=== PATIENT | male | born 1945 | race Two or more races ===

== ENCOUNTER 2016-11-27 19:56 | Inpatient (IN) | payer OTHER ==
--- NOTE | ~2016-11-27 | EKG ---
PATIENT: ARABELLA PEREZ UNIT #: [id number] Ventricular Rate: 77 BPM Atrial Rate: 77 BPM P-R Interval: 172 ms QRS Duration: 118 ms Q-T Interval: 466 ms QTC Calculation(Bezet): 527 ms P [place]: 52 degrees Calculated R [place]: 37 degrees Calculated T [place]: 138 degrees Diagnosis Line: Sinus rhythm with Premature atrial complexes Diagnosis Line: Left ventricular hypertrophy with QRS widening and Diagnosis Line: repolarization abnormality Diagnosis Line: Cannot rule out Septal infarct , age undetermined Diagnosis Line: Prolonged QT Diagnosis Line: Abnormal ECG Diagnosis Line: Diagnosis Line: Confirmed by ASHUTOSH MUHAMMAD MD ([id number]) on 11/28/2016 Diagnosis Line: 7:21:44 PM INTERPRETING MD: SABINA RAMON
--- NOTE | ~2016-11-27 | EKG ---
PATIENT: ARABELLA PEREZ UNIT #: [id number] Ventricular Rate: 76 BPM Atrial Rate: 76 BPM P-R Interval: 160 ms QRS Duration: 114 ms Q-T Interval: 448 ms QTC Calculation(Bezet): 504 ms P [place]: 34 degrees Calculated R [place]: -6 degrees Calculated T [place]: 134 degrees Diagnosis Line: Normal sinus rhythm Diagnosis Line: Non-specific intra-ventricular conduction delay Diagnosis Line: ST and T wave abnormality, consider lateral ischemia Diagnosis Line: Prolonged QT Diagnosis Line: Abnormal ECG Diagnosis Line: No previous ECGs available Diagnosis Line: Confirmed by MAYA URBAN MD ([id number]) on Diagnosis Line: 12/11/2016 7:12:26 AM INTERPRETING BRADLEY SAMUELS
--- NOTE | ~2016-11-27 | TH ---
Unit #: [id number] #: [id number] Patient: ARABELLA PEREZ [id number] [address] [address] [id number] I MR#: [id number] NAME: ARABELLA PEREZ : 1945 SEX: M STUDY DATE/TIME: 11/28/2016 UNIT: C5B ROOM: 554 STUDY DESCRIPTION: Cardiolite imaging. Attending Physician: Primitivo Anderson M.D. Primary Care Physician: No Primary Care Physician CARDIOLOGY REPORT EXAM Cardiolite imaging. PROCEDURE Resting dose was 10 mCi, stress dose was 31 mCi. End-diastolic volume was 205 ml and systolic volume was 150 ml. Calculated ejection fraction of 27%. Raw images showed no significantly abnormal extracardiac uptake. Images showed severe dilatation of the left ventricle. Gated images showed severe global hypokinesis with calculated ejection fraction of 27%. Perfusion images showed fixed defect in the inferior wall and apical wall and distal anterior wall with an area of surrounding reversible defect in the mid and distal anterior wall. IMPRESSION 1. Severe global hypokinesis of the left ventricle with calculated ejection fraction of 27%. 2. Fixed defect in the inferior wall and inferoapical wall, suggests inferior wall infarct but cannot exclude diaphragmatic attenuation. 3. Fixed defect in the apical wall and distal anterior wall with surrounding area of mild to moderate reversibility, suggestive of ischemia. 4. Severe global hypokinesis with calculated ejection fraction of 27%. Dictated by... aCssie Dennison TD: 11/30/2016 08:43 JOB #: [id number] CARDIOLOGY REPORT Page 1 of 1 X CARDIOLOGY REPORT
--- NOTE | ~2016-11-27 | ST ---
Unit #: [id number] #: [id number] Patient: ARABELLA PEREZ [id number] [address] [address] [id number] I MR#: [id number] NAME: ARABELLA PEREZ : 1945 SEX: M STUDY DATE/TIME: 11/28/2016 UNIT: C5B ROOM: 4 STUDY DESCRIPTION: Attending Physician: Salvador Belcher M.D. Primary Care Physician: No Primary Care Physician CARDIOLOGY REPORT EXAM EKG portion of Lexiscan stress test. FINDINGS Resting blood pressure was 125/73. Post infusion blood pressure was 117/77. Resting heart rate was 78 beats per minute. Post infusion heart rate was 85 beats per minute. Resting EKG showed normal sinus rhythm with PACs and nonspecific ST segment changes with T-wave inversion in I, aVL, V5, and V6. Post infusion EKG showed sinus rhythm with PACs and no changes in his ST segments. There was one isolated PVC. IMPRESSION Unremarkable EKG portion of Lexiscan stress test for regadenoson-induced ischemia. Dictated by.Laurita. Cassie Dennison TD: 11/29/2016 08:56 JOB #: [id number] CARDIOLOGY REPORT Page 1 of 1 X CARDIOLOGY REPORT
--- NOTE | ~2016-11-27 | CR63 ---
[facility]. [facility] A Service of [facility] & [facility] RADIOLOGY TEXT RESULTS PATIENT: ARABELLA PEREZ LOCATION: [facility] : [birth year] UNIT #: [id number] AGE: [address]: Salvador Belcher MD SEX: M ORDER DR: [id number] [place] [id number] E MR#: [id number] Acc #: [id number] NAME: ARABELLA PEREZ : 1945 SEX: M STUDY DATE/TIME: 11/27/2016 19:30 UNIT: SED ROOM: STUDY DESCRIPTION: CR Chest 2 View Attending Physician: Dheeraj Haney D.O. Ordering Physician: Dheeraj Haney D.O. Primary Care Physician: No Primary Care Physician MEDICAL IMAGING REPORT This report is preliminary unless electronic signature is present. EXAM 2 view chest. DATE OF EXAM 11/27/2016 INDICATIONS Shortness of air. Bilateral lower extremity swelling for 1 week. FINDINGS PA and lateral views of the chest without comparison. The heart is mildly enlarged. There is an airspace opacity in the right lower lobe with background COPD. No pleural effusion. IMPRESSION Mild right basilar airspace opacity likely representing pneumonia. Please confirm with clinical history. Dictated by... Syd Meneses M.D. THIS IS AN ELECTRONICALLY VERIFIED REPORT Syd Meneses M.D. at 11/28/2016 7:55 AM EZIO/jorge TD: 11/27/2016 23:29 JOB #: [id number] MEDICAL IMAGING REPORT Page 1 of 1
--- NOTE | ~2016-11-27 | HP ---
Unit #: [id number] #: [id number] Patient: ARABELLA PEREZ [id number] [address] [place], [place] [address] [id number] I MR#: [id number] NAME: ARABELLA PEREZ ROOM: 554 Age: 71 Sex: M Admission Date: 11/28/2016 : 1945 Attending Physician: Nelida Mzaa M.D. Primary Care Physician: No Primary Care Physician HISTORY AND PHYSICAL CHIEF COMPLAINT New onset dyspnea on exertion with pedal edema and an abnormal EKG. HISTORY This pleasant 71-year-old male with AODM, hypertension, hyperlipidemia, was transferred from [facility] emergency department for dyspnea on exertion. The patient states that he was well until visiting [place]. I believe he left his medicine in the [facility]. While in [place] he noted bilateral pedal edema with new dyspnea on exertion and perhaps some upper abdominal discomfort. Has never had similar symptoms in the past and states that the shortness of breath was fairly significant. He was perhaps given some Lasix and perhaps given an inhaler with improvement. He went to [facility] emergency department late last evening where a CTA was negative for PE. Dopplers were negative for DVTs. An EKG, however, is abnormal. We have no previous EKG for comparison. He denies chest pain with the above, although he does admit to new upper abdominal discomfort. PAST MEDICAL HISTORY 1. AODM x 2 years. 2. Essential hypertension. 3. Hyperlipidemia. 4. Right hand surgery. 5. Right leg surgery. ALLERGIES No known drug allergies. HOME MEDICATIONS Mevacor 20 mg q.h.s.; Zestoretic 20/25 mg daily; Amaryl 2 mg daily; aspirin 81 mg daily; Zyrtec 10 mg; metformin 1,000 mg b.i.d.; Norvasc 5 mg daily. Apparently patient was given possibly Lasix and possibly an albuterol inhaler two him while in [place]. FAMILY HISTORY Mother and older brother had heart disease. SOCIAL HISTORY The patient lives with his daughter in the [place]. He is a lifelong nonsmoker. Seldom drinks alcohol. 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 PHYSICAL EXAMINATION Unit #: [id number] #: [id number] Patient: ARABELLA PEREZ GENERAL: Very pleasant 71-year-old ill appearing male moderately obese, in no acute distress. VITAL SIGNS: Temperature 97.6, pulse 77, respirations 18, O2 saturation 98% on 2 L, blood pressure 119/75, weight is 195 pounds. HEENT: Eyes - PERRLA. Extraocular muscles are intact. Pharynx is benign. NECK: Supple without adenopathy, thyromegaly or JVD. CHEST: Clear. CARDIAC: Normal S1 and S2 without murmur. ABDOMEN: Bowel sounds are present. No hepatosplenomegaly, tenderness, or masses. EXTREMITIES: Without edema. Pedal pulses are present but diminished. No ulcers on the feet. Rash over the distal right lower extremity. NEUROLOGIC: Patient is awake, alert, and oriented. Cranial nerves are intact. Equal strength throughout. DIAGNOSTIC STUDIES LABORATORY STUDIES: Hematocrit is 48.4, normal white count, platelet count and coags. SMA 12 - glucose 225, BUN 25, chloride 95, lactic acid normal. Negative cardiac markers x2. Negative influenza serology. IMAGING STUDIES: Chest x-ray was suspicious for a right lower lobe infiltrate. A CTA of the chest was performed, which was negative for a PE. Did show some atelectasis at the right base, along with some bronchiectasis. Dopplers of the lungs were negative for DVT. CARDIOLOGY STUDIES: EKG shows a normal sinus rhythm, rate 76 with somewhat poor R wave progression V1 through V4. T wave inversions noted in 1 and AVL and in V5 and V6. No old EKG for comparison. ASSESSMENT 1. New dyspnea on exertion with abnormal EKG in this male with CAD risk factors. Patient also admitted to pedal edema, which now is improved. 2. AODM. 3. Hyperlipidemia. 4. Hypertension. PLANS 1. Repeat labs this morning, obtain BNP, echo, cardiology consultation. 2. Hold oral hypoglycemics, given sliding scale insulin for now. 3. DVT prophylaxis. Dictated by Nelida Maza M.D. Lew TD: 11/28/2016 05:26 JOB #: [id number] Unit #: [id number] #: [id number] Patient: ARABELLA PEREZ HISTORY AND PHYSICAL Page 1 of 1 X Nelida Maza MD HISTORY AND PHYSICAL
--- NOTE | ~2016-11-27 | ST ---
Unit #: [id number] #: [id number] Patient: ARABELLA PEREZ [id number] [address] [address] [id number] I MR#: [id number] NAME: ARABELLA PEREZ : 1945 SEX: M STUDY DATE/TIME: 11/28/2016 UNIT: C5B ROOM: 554 STUDY DESCRIPTION: Attending Physician: Salvador Belcher M.D. Primary Care Physician: No Primary Care Physician CARDIOLOGY REPORT EXAM EKG portion of Lexiscan Cardiolite stress test. REASON FOR EXAMINATION Atypical chest pain. FINDINGS Baseline EKG shows normal sinus rhythm with an incomplete left bundle branch block and a rate of 73 beats per minute. PROCEDURE A total of 0.4 mg of Lexiscan was injected per protocol followed by Cardiolite. The patient's symptoms were mild shortness of breath. There were no ST-T wave changes or arrhythmias. The test was stopped due to protocol completion. IMPRESSION 1. There were no ST-T wave changes. 2. Shortness of breath, resolved in recovery. 3. There are no arrhythmias. 4. Please correlate with Cardiolite imaging. Dictated by... Alaina Belcher A.P.R.N. for Sal Suarez M.D. AM/cristal TD: 11/28/2016 17:09 JOB #: [id number] CARDIOLOGY REPORT Page 1 of 1 X Alaina Belcher APRN CARDIOLOGY REPORT
--- NOTE | ~2016-11-27 | US84 ---
[id number] [address] [id number] I MR#: [id number] Acc #: [id number] NAME: ARABELLA PEREZ : 1945 SEX: M STUDY DATE/TIME: 11/27/2016 20:40 UNIT: SEDOF ROOM: G26793 STUDY DESCRIPTION: US LE Veins Complete Jaiden Stdy Attending Physician: Nelida Maza M.D. Ordering Physician: Dheeraj Haney D.O. Primary Care Physician: Primary Care Physician No MEDICAL IMAGING REPORT This report is preliminary unless electronic signature is present. EXAM Bilateral lower extremity venous duplex Doppler INDICATION Bilateral leg swelling for 2 weeks. Increasing severity over the last 2 days. TECHNIQUE Venous ultrasound examination of both lower extremities was performed using grayscale, spectral Doppler and color flow Doppler imaging. FINDINGS The examination is negative. There is no evidence of deep venous thrombus from the groin to the lower calf bilaterally. Visualized greater saphenous veins are also patent. IMPRESSION Negative examination. No evidence of lower extremity DVT. Dictated by... Syd Meneses M.D. THIS IS AN ELECTRONICALLY VERIFIED REPORT Syd Meneses M.D. at 11/28/2016 3:17 PM EZIO/kaylynn TD: 11/28/2016 01:22 JOB #: [id number] MEDICAL IMAGING REPORT Page 1 of 1
--- NOTE | ~2016-11-27 | CT16 ---
[facility] A Service [facility] RADIOLOGY TEXT RESULTS PATIENT: ARABELLA PEREZ LOCATION: [place] [address] : [birth year] UNIT #: [id number] AGE: [address]: Salvador Belcher MD SEX: M ORDER DR: [id number] [place] [address] [id number] I MR#: [id number] Acc #: [id number] NAME: ARABELLA PEREZ : 1945 SEX: M STUDY DATE/TIME: 11/27/2016 21:18 UNIT: SEDOF ROOM: K23547 STUDY DESCRIPTION: CT Angio Chest for PE Attending Physician: Nelida Maza M.D. Ordering Physician: Dheeraj Haney D.O. Primary Care Physician: Primary Care Physician No MEDICAL IMAGING REPORT This report is preliminary unless electronic signature is present. EXAM CTA chest INDICATIONS Shortness of air. Dyspnea for 1 week. Bilateral lower extremity swelling. TECHNIQUE CT angiography of the chest utilizing 100 mL Isovue-370 IV contrast. Coronal 3-D MIP reconstructions and standard sagittal reconstructions were obtained. This CT exam was performed with one or more of the following radiation dose reduction techniques: automatic exposure control, adjustment of mA and/or kV according to patient size, and iterative reconstruction. COMPARISON Chest radiograph obtained the same day. FINDINGS No pulmonary embolus. No thoracic aortic aneurysm or dissection. No pericardial or pleural effusion. There is some bronchiectasis and volume loss in the lingula and medial right middle lobe. Airspace opacity in the right lung base and left lung base is fairly linear most consistent with scarring or atelectasis. There is no focal consolidation. There is no acute osseous abnormalities. IMPRESSION [facility] A Service [facility] RADIOLOGY TEXT RESULTS PATIENT: ARABELLA PEREZ LOCATION: [place] [address] : [birth year] UNIT #: [id number] AGE: [address]: Salvador Belcher MD SEX: M ORDER DR: 1. Negative for pulmonary embolus. 2. Linear airspace opacity in the right lung base has appearance more typical for atelectasis or scarring, rather than a pneumonia. 3. Small areas of bronchiectasis and volume loss in the right middle lobe and lingula. Dictated by... Syd Meneses M.D. THIS IS AN ELECTRONICALLY VERIFIED REPORT Syd Meneses M.D. at 11/28/2016 3:17 PM EZIO/kaylynn TD: 11/28/2016 01:49 JOB #: [id number] MEDICAL IMAGING REPORT Page 1 of 1
--- NOTE | ~2016-11-27 | DS ---
Unit #: [id number] #: [id number] Patient: ARABELLA PEREZ [id number] [address] [address] [id number] I MR#: [id number] NAME: ARABELLA PEREZ ROOM: 554 Age: 71 Sex: M Admission Date: 11/28/2016 : 1945 Discharge Date: 12/02/2016 Attending Physician: Primitivo Anderson M.D. Primary Care Physician: Primary Care Physician No DISCHARGE SUMMARY DISCHARGE DIAGNOSES Include: 1. Triple-vessel coronary artery disease. 2. Ischemic cardiomyopathy with a depressed left ventricular ejection fraction of 20%. 3. Systolic heart failure with ejection fraction of 20%. 4. Type 2 diabetes uncontrolled. 5. Hyperlipidemia. 6. Essential hypertension. HOSPITAL COURSE Since the previous summary by Aileen Ruffin, the patient has had a left heart catheterization by Dr. Suarez which revealed patient does have ischemic cardiomyopathy with triple-vessel disease and severely depressed ejection fraction at 20%. Effort was made to coordinate care with CT surgery. At this time, patient is stable without any further symptoms of ischemia, chest pain or dyspnea on exertion. It is felt by Cardiology that patient was stable to be discharged home. The patient will have the surgical team call him for outpatient surgical planning with coronary artery bypass. The patient's tells me that he has a followup appointment with Dr. Nam tomorrow and I have stressed to her that patient should keep the followup appointment for any further care is needed. DISCHARGE CONDITION Stable. DISCHARGE INSTRUCTIONS 1. Keep followup appointment with Dr. Nam tomorrow. 2. Patient will have the surgical team at [facility] to call him for surgery planning with coronary artery bypass. DISCHARGE ACTIVITY I have spoken to patient's about the need for ambulating every day but minimal ambulation. The patient should not exert himself as he does have multivessel disease and this would put more strain on his heart. She voiced understanding. DISCHARGE DIET Heart-healthy with [place] [employer] guidelines for consistent carbs. DISCHARGE MEDICATIONS 1. Metformin to be restarted 1000 mg p.o. b.i.d. Unit #: [id number] #: [id number] Patient: ARABELLA PEREZ 2. Zyrtec 10 mg p.o. daily. 3. Coreg 6.25 mg p.o. b.i.d. 4. Colace 100 mg p.o. daily. 5. Lasix 40 mg p.o. daily. 6. Atorvastatin 80 mg p.o. daily. 7. Lisinopril 20 mg p.o. daily. 8. Aspirin 81 mg daily. 9. Potassium chloride 20 mEq p.o. daily. 10. Patient was instructed to restart metformin and glimepiride on , December 03, 2016, as he recently had heart cath with much IV contrast exposure. 11. Patient can stop the previous lisinopril with hydrochlorothiazide combination. 12. Will be giving patient a glucometer so that he can do Accu-Cheks as he may use low-dose sliding scale insulin prior to at bedtime. Dictated by... Jami Hutchinson PA-C for Cassie Palomino/katelyn TD: 12/04/2016 20:20 JOB #: [id number] DISCHARGE SUMMARY Page 1 of 1 X X DISCHARGE SUMMARY
--- NOTE | ~2016-11-27 | EKG ---
PATIENT: ARABELLA PEREZ UNIT #: [id number] Ventricular Rate: 65 BPM Atrial Rate: 65 BPM P-R Interval: 174 ms QRS Duration: 120 ms Q-T Interval: 484 ms QTC Calculation(Bezet): 503 ms P [place]: 43 degrees Calculated R [place]: 28 degrees Calculated T [place]: 131 degrees Diagnosis Line: Sinus rhythm with Premature atrial complexes with Diagnosis Line: Aberrant conduction Diagnosis Line: Incomplete left bundle branch block Diagnosis Line: ST and T wave abnormality, consider anterolateral Diagnosis Line: ischemia Diagnosis Line: Abnormal ECG Diagnosis Line: Diagnosis Line: Confirmed by ASHUTOSH MUHAMMAD MD ([id number]) on 12/01/2016 Diagnosis Line: 10:54:18 PM INTERPRETING MD: SABINA RAMON
--- NOTE | ~2016-11-27 | DS ---
Unit #: [id number] #: [id number] Patient: ARABELLA PEREZ [id number] [address] [address] [id number] I MR#: [id number] NAME: ARABELLA PEREZ ROOM: 554 Age: 71 Sex: M Admission Date: 11/28/2016 : 1945 Discharge Date: Attending Physician: Primitivo Anderson M.D. Primary Care Physician: Lissy Primary Care Physician DISCHARGE SUMMARY ANTICIPATED DATE OF DISCHARGE 11/28/2016 ADMITTING DIAGNOSES 1. New dyspnea on exertion with abnormal EKG with coronary artery disease risk factors. 2. Pedal edema. 3. Type 2 diabetes mellitus. 4. Hyperlipidemia. 5. Hypertension. DISCHARGE DIAGNOSEES 1. New dyspnea on exertion with abnormal EKG. 2. Status post Lexiscan Cardiolite stress test with nuclear cardiology report pending at this time. 3. Pedal edema, resolved. 4. Type 2 diabetes mellitus. 5. Hyperlipidemia. 6. Hypertension. CONSULTANTS Sal Suarez M.D., [facility]. PROCEDURES Lexiscan Cardiolite stress test. Nuclear film report pending from the hat presser at this time. DIAGNOSTIC STUDIES LABORATORY: Lab work: WBC 8.2, hemoglobin 15.8, hematocrit 48.4, platelet count 254,000. Sodium 139, potassium 4.1, chloride 100, CO2 30, glucose 159, BUN 18, creatinine 0.8, calcium 8.5, AST 23, ALT 20, alkaline phosphatase 71, total bilirubin 0.4, total protein 6.7, albumin 3.3, %MB 2.7, troponin I 0.03 and less than 0.05, BNP 77. Lipid profile: Total cholesterol 138, triglycerides 153, LDL cholesterol 78, HDL cholesterol 29. Lactic acid 1.4. Influenza A/B rapid screen negative/negative. INR 1.1. TSH 0.85. IMAGING: CTA of the chest. Impression: Negative for pulmonary embolus. Linear opacity in right lung base appearance more typical for atelectasis or scarring rather than pneumonia. Small areas of bronchiectasis and volume loss in the right middle lobe and lingula. Bilateral lower extremity duplex venous Doppler negative examination. No Unit #: [id number] #: [id number] Patient: ARABELLA PEREZ evidence of lower extremity DVT. Two-view chest x-ray 11/27/16. Impression: Mild right basilar airspace opacity likely representing pneumonia. Please confirm with clinical history. CARDIOLOGY: Lexiscan Cardiolite stress test report pending at this time. ALLERGIES No known drug allergies. CURRENT MEDICATIONS IN THE HOSPITAL 1. Tylenol 650 mg p.o. q.6 h. p.r.n. pain. Discontinue. 2. Lovenox 40 mg subcu q.24 h. Discontinue. 3. Claritin 10 mg p.o. daily p.r.n. Change to Zyrtec 10 mg p.o. daily (home med). 4. Ambien 5 mg p.o. q.h.s. p.r.n. sleep. Discontinue. 5. Norvasc 5 mg p.o. daily. 6. Laxative of choice p.r.n. constipation. 7. Mevacor 20 mg p.o. q.h.s. 8. NovoLog medium dose sliding-scale insulin protocol before meals and at bedtime. Discontinue. 9. Aspirin 325 mg p.o. q.24 h. 10. Discontinue IV fluids. 11. Cardiology will address discharge medications for hypertension as well as diuretics and aspirin. DIET Healthy heart diet. CONDITION Stable. DISPOSITION Home pending results of nuclear cardiology stress test and recommendations of Cardiology. HOSPITAL COURSE Patient is a 71-year-old [place] male who presented to [facility] emergency department on the day of admission with complaints of new onset dyspnea on exertion with pedal edema and was noted to have an abnormal EKG. Patient initially went to [facility] emergency department where a CTA of the chest was performed and negative for pulmonary embolus. Dopplers were also negative for DVTs. Because of the patient's abnormal EKG, he was transferred to this facility. Please refer to history and physical above. Dr. Suarez was consulted and the patient underwent a Lexiscan Cardiolite stress test this morning. Results of that test are pending at this time. The patient's labs and vital signs are stable. The patient has had no further dyspnea on exertion, no chest discomfort and pedal edema is resolved. The patient tells me that he is established with a primary care physician. I have evaluated the patient today and he will be discharged home pending recommendations of Cardiology based on results of the nuclear cardiology report. Please note this patient's visit was conducted with [employer]-sensing telephone drawer waxer system, drawer waxer Unit #: [id number] #: [id number] Patient: ARABELLA PEREZ #[id number]. Patient expressed concern regarding a small pinkish area on the anteromedial aspect of the right lower extremity. There is no itching, burning, vesicles, edema, streaking or other complaints. Patient denies trauma to this area. The patient has been advised to monitor this area closely and to return to the emergency department for fever, chills, erythema, enlarging area with or without streaking and he has verbalized understanding of this information. An order has been written to call [facility] with results of the nuclear cardiology report for discharge order. An order has also been written for cardiology to review the patient's discharge medication reconciliation form for the reason as dictated under discharge medications above. Dictated by... Aileen Ruffin A.P.R.N. for Cassie Galdamez/nya TD: 11/30/2016 18:01 JOB #: [id number] DISCHARGE SUMMARY Page 1 of 1 X Aileen Ruffin PLACEMENT ASSISTANT X DISCHARGE SUMMARY
--- NOTE | ~2016-11-27 | CO ---
Unit #: [id number] #: [id number] Patient: ARABELLA PEREZ [id number] [facility]. [place], [place] [address] [id number] MR#: [id number] NAME: ARABELLA PEREZ ROOM: 55 Age: 71 Sex: M Admission Date: 11/28/2016 : 1945 Attending Physician: Salvador Belcher M.D. Primary Care Physician: No Primary Care Physician Consultation Date: 11/28/2016 CONSULTATION REPORT REASON FOR CONSULTATION Dyspnea. 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 The patient reports that he never has had a myocardial infarction, stress test, or 2D echocardiogram. Please note, patient speaks Lao only and the interpreter deaf phone was used. Additional past medical history includes: Adult-onset diabetes mellitus, hypertension, and hyperlipidemia. The patient was transferred from [facility] for dyspnea on exertion. The patient states he was well while visiting family in [place]. While in [place], he noted some bilateral pedal edema with new dyspnea on exertion and perhaps some upper abdominal comfort. He reports that this dyspnea had been going on for one week. He denies any chest pain, nausea, vomiting, fever, or chills. He went to [facility] where he had a CTA that was negative for a PE and Dopplers were negative for DVTs. His EKG was abnormal. The patient was sent to [facility] for further workup. The patient's EKG showed sinus rhythm at 76 beats per minute with a left axis and incomplete left bundle branch block with T-wave inversion. His troponin was 0.03. PAST MEDICAL HISTORY 1. Hypertension. 2. Hyperlipidemia. 3. Adult-onset diabetes mellitus. PAST SURGICAL HISTORY 1. Right hand surgery. 2. Right leg surgery. ALLERGIES No known allergies. HOME MEDICATIONS 1. Glimepiride 2 mg p.o. daily. 2. Lovastatin 20 mg p.o. at bedtime. 3. Amlodipine 5 mg p.o. daily. 4. Metformin 1000 mg p.o. b.i.d. 5. Aspirin 81 mg p.o. daily. 6. Lasix 40 mg p.o. daily. Unit #: [id number] #: [id number] Patient: ARABELLA PEREZ 7. Zyrtec 10 mg p.o. daily. 8. Zestoretic 20/25 mg one tab p.o. daily. FAMILY HISTORY Patient reports that his mother and brother had heart disease. SOCIAL HISTORY The patient denies tobacco, alcohol, and illicit drug abuse. He endorses that he is a lifelong nonsmoker. REVIEW OF SYSTEMS A 10-point review of systems is negative except for what is indicated above. PHYSICAL EXAMINATION GENERAL: The patient is awake, alert, in no acute distress. VITAL SIGNS: Temperature 97.6, heart rate 77, respirations 18, blood pressure 119/75. He is oxygenating 99%. HEENT: Head is atraumatic, normocephalic. Pupils equal, round, and reactive. Extraocular movements are intact. No drainage from ears or nares. NECK: Supple. Trachea is midline. No lymphadenopathy or thyromegaly is appreciated. Normal carotid upstrokes. CHEST: Lungs are clear to auscultation bilaterally. No wheezes, rales, rhonchi. CARDIOVASCULAR: S1, S2. No murmurs, rubs, or gallops appreciated. ABDOMEN: Soft, nontender, nondistended. Bowel sounds are positive in all four quadrants. No hepatosplenomegaly is appreciated. SKIN: Appears to be warm, dry, and intact. EXTREMITIES: No clubbing or cyanosis. He does have a rash over his distal lower extremity with trace edema. NEUROLOGIC: The patient is alert and oriented x3. He is pleasant, conversant. No focal deficits. Cranial nerves II-XII intact. DIAGNOSTIC STUDIES LABORATORY: Troponin less than 0.05. White blood cells 8.2, hemoglobin 15.8, hematocrit 48.4, platelets 254,000. Sodium 135, potassium 3.8, chloride 95, CO2 of 29, BUN 25, creatinine 1.1, glucose 224. CARDIOVASCULAR: EKG shows sinus rhythm with a rate of 76 beats per minute and complete left bundle branch block. ASSESSMENT 1. Atypical chest pain. 2. Family history of coronary artery disease. 3. Adult-onset diabetes mellitus. 4. Hypertension. 5. Left ventricular hypertrophy. 6. Hyperlipidemia. 7. Lifelong nonsmoker. PLAN A 2D echocardiogram has been ordered for this patient. A Lexiscan Cardiolite stress test has also been ordered. Will check a TSH, lipid panel, and trend cardiac enzymes. Unit #: [id number] #: [id number] Patient: ARABELLA PEREZ Dictated by... Alaina Belcher A.P.R.N. for Cassie Zabala TD: 11/28/2016 16:42 JOB #: [id number] CONSULTATION REPORT Page 1 of 1 X Alaina Belcher ANALYSIS TESTER X CONSULTATION REPORT
--- NOTE | ~2016-11-27 | DS ---
Unit #: [id number] #: [id number] Patient: ARABELLA PEREZ [id number] [address] [id number] I MR#: [id number] NAME: ARABELLA PEREZ ROOM: 554 Age: Sex: M Admission Date: 11/28/2016 : 1945 Discharge Date: 12/02/2016 Attending Physician: Primitivo Anderson M.D. DISCHARGE SUMMARY Discharge summary took 45 minutes to include coordinating care with cardiology and CT surgery as well as educating the patient and his along with a energy control officer via phone. Dictated by... Jami Hutchinson PA-C for Cassie Palomino/chaka TD: 12/04/2016 13:15 JOB #: [id number] DISCHARGE SUMMARY Page 1 of 1 X X DISCHARGE SUMMARY
[2016-11-27 19:28] LABS: BASOPHIL% 0.3 % (0-2.5); EOSINOPHIL# 0.3 X10e3 (0-0.7); EOSINOPHIL% 3.9 % (0.0-7.0); HEMATOCRIT 48.4 % (38.0-50.0); HEMOGLOBIN 15.8 gm/dL (13.0-16.0); LYMPHOCYTE# 2.4 X10e3 (1.0-3.5); LYMPHOCYTE% 28.8 % (17.0-45.0); MEAN CELL VOLUME 88.1 FL (83-96); MEAN CORPUSCULAR HEMOGLOBIN 28.8 PG (28-34); MEAN CORPUSCULAR HGB CONC 32.7 g/dL (30-36); MEAN PLATELET VOLUME 10.9 FL (6.5-11.5); MONOCYTE% 11.7 % (3.0-12.0); NEUTROPHIL# 4.5 X10e3 (1.5-7.1); NEUTROPHIL% 55.3 % (40-75); PLATELET COUNT 254 X10e3 (140-420); RED CELL DISTRIBUTION WIDTH 14.4 % (11.0-15.5); WHITE BLOOD COUNT 8.2 X10e3 (4.0-10.5)
[2016-11-27 19:31] LABS: DIFF IND NO
[2016-11-27 19:36] LABS: INR 1.1; PROTHROMBIN TIME (PATIENT) 12.1 SECONDS (9.5-12.4)
[2016-11-27 19:38] LABS: BUN/CREATININE RATIO 22.72; CALCIUM SERUM 8.6 mg/dL (8.4-10.2); CREATININE SERUM 1.1 mg/dL (0.6-1.4); GLOM FILT RATE Estimated 67.7 mL/min (>60); POTASSIUM 3.8 mmol/L (3.5-5.1)
[2016-11-27 19:43] LABS: INFLUENZA A NEG (NEG); INFLUENZA B NEG (NEG)
[2016-11-27 19:43] LABS: PARTIAL THROMBOPLASTIN TIME 25.5 SECONDS (25.6-38.1)
[2016-11-27 19:50] LABS: POC - TROPONIN <0.05 ng/mL (<=0.05)
[~2016-11-27 19:56] MED LIST: AMARYL; AMLODIPINE BESYL5 MG PO; ASPIRIN; ASPIRIN81 MG PO; BACTRIM DS TABL1 TA1 PO; GLIMEPIRIDE2 MG PO; KEFLEX500 M1 PO; LANTUS100 U/ML; LASIX PO; LISINOPRIL-HCTZ1 T15; LOVASTATIN10 MG; LOVASTATIN20 MG PO; METFORMIN; ZESTORETIC 20-1 EAC2 PO; ZYRTEC10 M1 PO
[2016-11-27 22:15] LABS: POC - CKMB <1.0 ng/mL (0.0-7.9)
[2016-11-27 22:16] LABS: POC - TROPONIN <0.05 ng/mL (<=0.05)
[2016-11-28 12:04] LABS: HEMATOCRIT 46.2 % (38.0-50.0); HEMOGLOBIN 14.7 gm/dL (13.0-16.0); MEAN CELL VOLUME 88.7 FL (83-96); MEAN CORPUSCULAR HEMOGLOBIN 28.2 PG (28-34); MEAN CORPUSCULAR HGB CONC 31.8 g/dL (30-36); MEAN PLATELET VOLUME 10.3 FL (6.5-11.5); RED BLOOD COUNT 5.21 X10e (3.90-5.60); RED CELL DISTRIBUTION WIDTH 14.2 % (11.0-15.5); WHITE BLOOD COUNT 7.5 X10e3 (4.0-10.5)
[2016-11-28 12:36] LABS: ALBUMIN SERUM 3.3 g/dL (3.5-5.0); BILIRUBIN,TOTAL 0.4 mg/dL (0.2-2.0); BUN/CREATININE RATIO 22.5; CALCIUM SERUM 8.5 mg/dL (8.4-10.2); CREATININE SERUM 0.8 mg/dL (0.6-1.4); GLOM FILT RATE Estimated 90.5 mL/min (>60); POTASSIUM 4.1 mmol/L (3.5-5.1); PROTEIN TOTAL SERUM 6.7 g/dL (6.0-8.3)
[2016-11-28 12:37] LABS: CHOLESTEROL 138 mg/dL (0-200); HDL CHOLESTEROL 29 mg/dL (29-75); LDL CHOLESTEROL 78 mg/dL (-130); LDL/HDL RATIO 3 RATIO (0-4); TRIGLYCERIDES 153 mg/dL (10-160)
[2016-11-28 12:55] LABS: %MB 2.7 % (0.0-4.0); MB 1.9 ng/ml
[2016-11-28 21:21] LABS: MB 1.8 ng/ml
[2016-11-30 07:18] LABS: HEMATOCRIT 45.7 % (38.0-50.0); HEMOGLOBIN 14.4 gm/dL (13.0-16.0); MEAN CELL VOLUME 88.8 FL (83-96); MEAN CORPUSCULAR HEMOGLOBIN 27.9 PG (28-34); MEAN CORPUSCULAR HGB CONC 31.4 g/dL (30-36); MEAN PLATELET VOLUME 10.6 FL (6.5-11.5); RED BLOOD COUNT 5.15 X10e (3.90-5.60); RED CELL DISTRIBUTION WIDTH 14.2 % (11.0-15.5); WHITE BLOOD COUNT 7.2 X10e3 (4.0-10.5)
[2016-11-30 07:45] LABS: BUN/CREATININE RATIO 27.14; CALCIUM SERUM 8.6 mg/dL (8.4-10.2); CREATININE SERUM 0.7 mg/dL (0.6-1.4); GLOM FILT RATE Estimated 95.7 mL/min (>60); POTASSIUM 4.4 mmol/L (3.5-5.1)
[2016-12-01 06:24] LABS: BASOPHIL% 0.3 % (0-2.5); EOSINOPHIL# 0.3 X10e3 (0-0.7); EOSINOPHIL% 3.8 % (0.0-7.0); HEMATOCRIT 44.9 % (38.0-50.0); HEMOGLOBIN 14.6 gm/dL (13.0-16.0); MEAN CORPUSCULAR HEMOGLOBIN 28.3 PG (28-34); MEAN CORPUSCULAR HGB CONC 32.5 g/dL (30-36); MEAN PLATELET VOLUME 10.9 FL (6.5-11.5); MONOCYTE# 0.7 X10e3 (0-1.0); MONOCYTE% 10.3 % (3.0-12.0); NEUTROPHIL% 28.6 % (40-75); PLATELET COUNT 212 X10e3 (140-420); RED BLOOD COUNT 5.17 X10e (3.90-5.60); RED CELL DISTRIBUTION WIDTH 14.1 % (11.0-15.5)
[2016-12-01 06:31] LABS: PARTIAL THROMBOPLASTIN TIME 28.9 SECONDS (23.5-31.3); PROTHROMBIN TIME (PATIENT) 10.5 SECONDS (9.6-11.5)
[2016-12-01 06:32] LABS: DIFF IND YES
[2016-12-01 06:44] LABS: ANISOCYTOSIS SL; PLATELET ESTIMATE NORMAL (NORMAL)
[2016-12-01 07:13] LABS: CREATININE SERUM 0.6 mg/dL (0.6-1.4); GLOM FILT RATE Estimated 101.9 mL/min (>60); MAGNESIUM 1.7 mg/dL (1.6-3.0); POTASSIUM 4.5 mmol/L (3.5-5.1)
[2016-12-02 05:37] LABS: HEMATOCRIT 44.4 % (38.0-50.0); HEMOGLOBIN 14.5 gm/dL (13.0-16.0); MEAN CELL VOLUME 86.7 FL (83-96); MEAN CORPUSCULAR HEMOGLOBIN 28.4 PG (28-34); MEAN CORPUSCULAR HGB CONC 32.7 g/dL (30-36); MEAN PLATELET VOLUME 10.6 FL (6.5-11.5); RED BLOOD COUNT 5.12 X10e (3.90-5.60); WHITE BLOOD COUNT 8.2 X10e3 (4.0-10.5)
[2016-12-02 07:12] LABS: BUN/CREATININE RATIO 35.71; CALCIUM SERUM 8.9 mg/dL (8.4-10.2); CREATININE SERUM 0.7 mg/dL (0.6-1.4); GLOM FILT RATE Estimated 95.7 mL/min (>60); MAGNESIUM 2.1 mg/dL (1.6-3.0); POTASSIUM 4.6 mmol/L (3.5-5.1)
[2016-12-02] MEDS ORDERED: COREG6.25 M1 PO (17:19)
[2016-12-02] MEDS ORDERED: DOCUSATE SODIU100 MG PO (17:19)
[2016-12-02] MEDS ORDERED: NITROSTAT0.4 MG SL (17:20)
[2016-12-02] MEDS ORDERED: ATORVASTATIN CA80 MG PO (17:21)
[2016-12-02] MEDS ORDERED: NOVOLOG FL100 UNIT/1 (17:21)
[2016-12-02] MEDS ORDERED: PRINIVIL20 M1 PO (17:21)
[2016-12-02] MEDS ORDERED: K-TAB ER20 MEQ PO (17:22)
[2016-12-02] MEDS ORDERED: METFORMIN PO (18:43)
== END 2016-12-02 19:30 | disposition home or self-care (01) | DRG 286 ==
LOC: SED 19:56 → C5B 11-28 16:30
PROVIDERS: Emergency Medicine; Internal Medicine; Nurse Practitioner; Physician Assistant Medical
PROC: B24BZZZ Ultrasonography of Heart with Aorta (ICD-10-PCS; 2016-11-28)
PROC: 4A023N7 Measurement of Cardiac Sampling and Pressure, Left Heart, Percutaneous Approach (ICD-10-PCS; principal; 2016-12-01)
PROC: B211YZZ Fluoroscopy of Multiple Coronary Arteries using Other Contrast (ICD-10-PCS; 2016-12-01)
PROC: B215YZZ Fluoroscopy of Left Heart using Other Contrast (ICD-10-PCS; 2016-12-01)
DX: I25.110 Atherosclerotic heart disease of native coronary artery with unstable angina pectoris (principal); I50.21 Acute systolic (congestive) heart failure; E11.65 Type 2 diabetes mellitus with hyperglycemia; E83.42 Hypomagnesemia; I11.0 Hypertensive heart disease with heart failure; I25.5 Ischemic cardiomyopathy; Z79.84 Long term (current) use of oral hypoglycemic drugs; E78.5 Hyperlipidemia, unspecified; Z79.82 Long term (current) use of aspirin; Z82.49 Family history of ischemic heart disease and other diseases of the circulatory system
CPT/HCPCS: 36415; 71020; 71275; 78452; 80048; 80053; 80061; 82550; 82553; 82947; 83036; 83605; 83735; 83874; 83880; 84443; 84484; 85025; 85027; 85610; 85730; 87804; 93005; 93017; 93306; 93970; 94760; 96374; 99285; A9500; C1769; C1887; C1894; J0696; J1644; J1650; J1815; J2250; J2785; J3010; J3475; Q9967